=== PATIENT | female | born 1945 | race Caucasian/White ===

== ENCOUNTER 2016-09-10 08:07 | Day surgery (SDC) | payer OTHER ==
[2016-09-10] MEDS ORDERED: LIDOCAINE 1% 20 ML MDV ID ONE (09:20)
[2016-09-10] MEDS ORDERED: VERSED ONE (10:45)
[2016-09-10] MEDS ORDERED: DIPRIVAN 20 ML VIAL IVP ONE (10:45)
[2016-09-10] MEDS ORDERED: LIDOCAINE HCL 2% LUER-JET ONE (10:45)
[2016-09-10 11:46] VITALS: BP 145/69; TEMP 97.9
--- NOTE | 2016-09-10 15:39 | OP ---
INDICATIONS FOR PROCEDURE: 71 year old female presenting complaining of persistent heartburn and regurgitation. She is feeling better after initiating some reflux precautions. She is on PPI in the morning and H2 danny at night. MEDICATIONS: SEE ANESTHESIA NOTES. PROCEDURE: ENDOSCOPY BIOPSY, SNARE POLYPECTOMY, ENDOCLIP THERAPY. REPORT: The risks, benefits, alternatives and limitations were discussed in detail with the patient. Informed consent was obtained. After adequate sedation was achieved, the video endoscope was introduced in the posterior pharynx and esophagus under direct vision and easily advanced down to the second portion of the duodenum. I then slowly withdrew. The duodenal mucosa appeared unremarkable as did the duodenal bulb. The antrum body was relatively unremarkable. The scope was retroflexed to look at the cardia and fundus which was unremarkable other than the polyp. There is about a 7-8mm raised polyp in the very proximal body right near the junction of the cardia it was on the lesser curvature. I biopsied a little piece of this for histological view. I then removed the polyp using the snare. No polyp tissue was noted to be remaining behind. The polyp was retrieved and there was a scant amount of blood at the polypectomy site so I closed the polypectomy site with Endoclip. No additional bleeding was noted other then a drop or two initially. The remaining stomach appeared unremarkably. There was a small hiatal hernia about 2cm in size. I withdrew the scope back through the esophagus revealed a slightly irregular GE junction which was located right at the top of the gastric folds. This irregularity was biopsied. The esophagus was otherwise unremarkable The patient tolerated the procedure well with stable vital signs and pulse oximetry throughout. IMPRESSION: 1. Small sliding hiatal hernia 2. Gastric polyp removed as above RECOMMENDATIONS: 1. Strict reflux precautions, I'll reenforce what she needs to do as we discussed in the office 2. Await esophageal biopsy. If there is evidence of Crisostomo's then I suggest repeat endoscopy examination again in three years sooner if the signs or symptoms would indicate otherwise. 3. Await polyp pathology if it is showing abnormalis changes then I suggest a repeat endoscopy examination again in one year or sooner depending on what the pathology shows. If it is hyperplastic no further intervention required. 4. We will see her back in the office as needed. CC: Dr. Go TITUS
== END 2016-09-10 12:29 | disposition home or self-care (01) ==
LOC: SURG 08:07
PROVIDERS: ATTEND Internal Medicine Gastroenterology
DX: K21.9 Gastro-esophageal reflux disease without esophagitis (principal); D13.1 Benign neoplasm of stomach; D13.0 Benign neoplasm of esophagus; K29.50 Unspecified chronic gastritis without bleeding; K44.9 Diaphragmatic hernia without obstruction or gangrene; E11.9 Type 2 diabetes mellitus without complications

== ENCOUNTER 2016-12-04 08:21 | Outpatient (CLI) ==
--- NOTE | 2016-12-04 09:16 | US ---
EXAM: Bilateral lower extremity venous Doppler HISTORY: Concern for DVT with lower extremity edema and tenderness for 3 months. COMPARISON: None TECHNIQUE: Sonographic and Doppler evaluation of the bilateral lower extremity vessels from the com mon femoral through the anterior tibial veins were obtained. Augmentation and compression technique s were also performed. FINDINGS: Left anterior tibial vein is not visualized. There is spontaneous Doppler flow seen in t he bilateral lower extremity veins from the common femoral through the anterior tibial veins. There is normal compression and augmentation throughout the lower extremity veins. There is no visualize d reflux. Sonographic appearance of the soft tissues are unremarkable. IMPRESSION: No lower extremity thrombus.
== END 2016-12-04 08:22 | disposition home or self-care (01) ==
LOC: RAD 08:21
PROVIDERS: ATTEND Family Medicine
DX: R60.0 Localized edema (principal)

== ENCOUNTER 2017-03-17 14:55 | Outpatient (CLI) ==
--- NOTE | 2017-03-17 16:14 | DI ---
Exam: Two x-rays of the chest. Comparison: 10/05/2012. Reason for exam: Cough. FINDINGS: No pneumothorax, pleural effusion, or focal consolidation. The cardiac silhouette is not enlarged. Operative changes are seen in the right hemithorax/right anterior chest soft tissue. The i joshua osseous structures appear grossly unremarkable without acute fracture. Impression: No acute cardiopulmonary process.
== END 2017-03-17 14:56 | disposition home or self-care (01) ==
LOC: RAD 14:55
PROVIDERS: ATTEND Family Medicine
DX: R05 Cough (principal)